=== PATIENT | female | born 1945 | race Caucasian/White ===

== ENCOUNTER → 2017-08-24 | Outpatient (CLI) | payer MEDICARE, OTHER ==
--- NOTE | 2017-08-24 14:59 | RAD ---
EXAM: Dual energy x-ray absorptiometry (DEXA). HISTORY: Postmenopausal female presents prostate presses screening. COMPARISON: None. TECHNIQUE: Dual energy x-ray absorptiometry of the both hips was performed. FINDINGS: The average total bone mineral density in the left femoral neck is 0.829 g/cmxcm, corresponding with a T-score of -1.7. The average total bone mineral density in the right femoral neck is 0.781 g/cmxcm, corresponding with a T-score of -2.1. IMPRESSION: Osteopenia measured at the bilateral femoral necks.
== END | disposition home or self-care (01) ==
LOC: DXRAD 12:45
PROVIDERS: ATTEND Nurse Practitioner Family
DX: M85.88 Other specified disorders of bone density and structure, other site (principal); Z78.0 Asymptomatic menopausal state
CPT/HCPCS: 77080

== ENCOUNTER → 2018-04-18 | Outpatient (CLI) | payer MEDICARE, OTHER ==
--- NOTE | 2018-04-18 16:17 | RAD ---
EXAM: Left knee, 2 views. HISTORY: Pain. COMPARISON: None. FINDINGS: Frontal and lateral views of the left knee are obtained. There is no fracture, dislocation or subluxation. No joint effusion is seen. IMPRESSION: No acute osseous finding. Electronically signed by: Yahaira Green MD (04/18/2018 4:14 PM) [facility] [place]
== END | disposition home or self-care (01) ==
LOC: PMG 12:45
PROVIDERS: ATTEND Nurse Practitioner Family
DX: M25.562 Pain in left knee (principal)
CPT/HCPCS: 73560